=== PATIENT | female | born 1980 | race Caucasian/White ===

== ENCOUNTER 2016-04-23 18:13 | Emergency (ER) | payer OTHER ==
[~2016-04-23] VITALS: Ht 162.6 cm; Wt 60.0 kg
[~2016-04-23 18:13] MED LIST: IBUP400T20 PO; QUET1TAB66
[2016-04-23 18:55] VITALS: BP 110/70; PULSE 85; RESP 20; TEMP 97.3; O2SAT 100
[2016-04-23 19:55] LABS: AMPHETAMINE, URINE NEG (NEG); BARBITURATES, URINE NEG (NEG); COCAINE, URINE NEG (NEG)
[2016-04-23 20:07] LABS: BACTERIA, URINE OCC /hpf; BLOOD, URINE NEG (NEG); COMMENT (UR) CULT NOT INDICATED; CULTURE IF INDICATED CULT NOT INDICATED; GLUCOSE,URINE NEG (NEG); KETONE, URINE NEG (NEG); MUCUS URINE MOD /lpf (OCC); NITRITE,URINE NEG (NEG); PH, URINE 5.5 (5.0-8.5); SQUAMOUS EPITHELIAL CELL URINE 4 /hpf (0-5); URINE COLOR YELLOW (YELLW/STRAW)
--- NOTE | 2016-04-23 20:38 | PD ---
HPI Chief Complaint: Psychiatric Symptoms Time Seen by Provider: 20:36 Travel History International Travel<30 days: No Contact w/Intl Traveler<30days: No Traveled to known affect area: No History of Present Illness HPI Patient comes in under Reed act by police for making suicidal statements. Patient states she was having thoughts of harming herself. Patient states she has attempted suicide in the past by overdosing on Xanax and a plan today was take whatever pills she had in her purse. Patient denies actually taking anything. Denies any chest pain, shortness of breath, nausea, vomiting, or fevers. PFSH Past Medical History Bipolar Disorder: Yes ?: Not Social History Alcohol Use: No Tobacco Use: No Substance Use: No Allergies-Medications (Allergen,Severity, Reaction): Coded Allergies: No Known Allergies (Verified Allergy, Mild, 10/09/06) Reported Meds & Prescriptions Reported Meds & Active Scripts Active Motrin (Ibuprofen) 400 Mg Tab 400 Mg PO Q8HPRN FOR PAIN Reported Seroquel (Quetiapine Fumarate) 300 Mg Tab Review of Systems Except as stated in HPI: all other systems reviewed are Neg Physical Exam Narrative GENERAL: Well-developed, well nourished, in no acute distress, and non-ill appearing. SKIN: Warm and dry. HEAD: Atraumatic. Normocephalic. EYES: Pupils equal and round. EOMI. No scleral icterus. No injection or drainage. ENT: No nasal bleeding or discharge. Mucous membranes pink and moist. NECK: Trachea midline. Supple. No nuclear rigidity. CARDIOVASCULAR: Regular rate and rhythm. No murmur appreciated. RESPIRATORY: No accessory muscle use. No respiratory distress. Clear to auscultation. Breath sounds equal bilaterally. MUSCULOSKELETAL: No obvious deformities. No clubbing. No cyanosis. No edema. Full range of motion. NEUROLOGICAL: Awake and alert. No obvious cranial nerve deficits. Motor grossly within normal limits. Normal speech. PSYCHIATRIC: Mildly agitated. Data Data Last Documented VS Vital Signs Date Time Temp Pulse Resp B/P Pulse Ox O2 Delivery O2 Flow Rate FiO2 04/23/16 18:55 97.3 85 20 110/70 100 Orders Complete Blood Count With Diff (04/23/16 19:09) Comprehensive Metabolic Panel (04/23/16 19:09) Urinalysis - C+S If Indicated (04/23/16 19:09) Ed Urine Pregnancytest Poc (04/23/16 19:09) Psych Screen (04/23/16 19:09) Drug Screen, Random Urine (04/23/16 19:09) Alcohol (Ethanol) (04/23/16 19:09) Tylenol (Acetaminophen) (04/23/16 19:09) Salicylates (Aspirin) (04/23/16 19:09) Labs Laboratory Tests Test 04/23/16 04/23/16 19:33 19:50 Urine Color YELLOW Urine Turbidity CLEAR Urine pH 5.5 Urine Specific [place] 1.011 Urine Protein NEG mg/dL Urine Glucose (UA) NEG mg/dL Urine Ketones NEG mg/dL Urine Occult Blood NEG Urine Nitrite NEG Urine Bilirubin NEG Urine Urobilinogen LESS THAN 2.0 MG/DL Urine Leukocyte Esterase NEG Urine RBC 1 /hpf Urine WBC 1 /hpf Urine Squamous Epithelial 4 /hpf Cells Urine Bacteria OCC /hpf Urine Mucus MOD /lpf Microscopic Urinalysis Comment CULT NOT INDICATED Urine Opiates Screen NEG Urine Barbiturates Screen NEG Urine Amphetamines Screen NEG Urine Benzodiazepines Screen NEG Urine Cocaine Screen NEG Urine Cannabinoids Screen POS White Blood Count 8.3 TH/MM3 Red Blood Count 4.03 MIL/MM3 Hemoglobin 12.9 GM/DL Hematocrit 38.0 % Mean Corpuscular Volume 94.3 FL Mean Corpuscular Hemoglobin 31.9 PG Mean Corpuscular Hemoglobin 33.8 % Concent Red Cell Distribution Width 13.5 % Platelet Count 280 TH/MM3 Mean Platelet Volume 8.0 FL Neutrophils (%) (Auto) 51.0 % Lymphocytes (%) (Auto) 34.4 % Monocytes (%) (Auto) 7.8 % Eosinophils (%) (Auto) 5.8 % Basophils (%) (Auto) 1.0 % Neutrophils # (Auto) 4.2 TH/MM3 Lymphocytes # (Auto) 2.9 TH/MM3 Monocytes # (Auto) 0.7 TH/MM3 Eosinophils # (Auto) 0.5 TH/MM3 Basophils # (Auto) 0.1 TH/MM3 CBC Comment DIFF FINAL Differential Comment Sodium Level 140 MEQ/L Potassium Level 3.7 MEQ/L Chloride Level 107 MEQ/L Carbon Dioxide Level 28.4 MEQ/L Anion Gap 5 MEQ/L Blood Urea Nitrogen 9 MG/DL Creatinine 0.88 MG/DL Estimat Glomerular Filtration 72 ML/MIN Rate Random Glucose 77 MG/DL Calcium Level 8.9 MG/DL Total Bilirubin 0.3 MG/DL Aspartate Amino Transf 11 U/L (AST/SGOT) Alanine Aminotransferase 15 U/L (ALT/SGPT) Alkaline Phosphatase 48 U/L Total Protein 7.8 GM/DL Albumin 4.2 GM/DL Salicylates Level 2.5 MG/DL Acetaminophen Level LESS THAN 2.0 MCG/ML Ethyl Alcohol Level LESS THAN 3 MG/DL MDM Medical Decision Making Medical Screen Exam Complete: Yes Emergency Medical Condition: Yes Differential Diagnosis Homicidal, suicidal, bipolar, depression, anxiety, other Narrative Course Patient was seen and examined. Labs were obtained and reviewed. Patient medically cleared for further treatment and evaluation by psych. Final disposition per psych. Diagnosis Primary Impression: Suicidal ideations Condition: Stable Rasta Veloz Apr 23, 2016 20:38
[2016-04-23 20:39] LABS: ANION GAP 5 MEQ/L (5-15)
[2016-04-23 20:42] LABS: ACETAMINOPHEN LESS THAN 2.0 MCG/ML (10.0-30.0); ALKALINE PHOSPHATASE 48 U/L (45-117); ALT (GPT) 15 U/L (10-53); AST (GOT) 11 U/L (15-37); BICARBONATE 28.4 MEQ/L (21.0-32.0); BLOOD UREA NITROGEN 9 MG/DL (7-18); CHLORIDE 107 MEQ/L (98-107); GLOMERULAR FILTRATION RATE 72 ML/MIN (>89); POTASSIUM 3.7 MEQ/L (3.5-5.1); SODIUM (NA) 140 MEQ/L (136-145); TOTAL BILIRUBIN ADULT 0.3 MG/DL (0.2-1.0)
[2016-04-23 21:10] LABS: AUTOMATED NEUTROPHIL # 4.2 TH/MM3 (1.8-7.7); BASOPHIL # 0.1 TH/MM3 (0-0.2); EOSINOPHIL # 0.5 TH/MM3 (0-0.4); EOSINOPHIL % 5.8 % (0.0-4.0); HEMO FLAGS DIFF FINAL; LYMPH % 34.4 % (9.0-44.0); LYMPHOCYTE # 2.9 TH/MM3 (1.0-4.8); MEAN CELL VOLUME 94.3 FL (80.0-100.0); MEAN CORPUSCULAR HEMOGLOBIN 31.9 PG (27.0-34.0); MEAN CORPUSCULAR HGB CONC 33.8 % (32.0-36.0); MONO % 7.8 % (0.0-8.0); PLATELET COUNT 280 TH/MM3 (150-450); RED BLOOD COUNT 4.03 MIL/MM3 (4.00-5.30); RED CELL DISTRIBUTION WIDTH 13.5 % (11.6-17.2); WHITE BLOOD COUNT 8.3 TH/MM3 (4.0-11.0)
[2016-04-23] MEDS ORDERED: diphenhydrAMINE HCL 50 MG CAP PO ONE (21:15)
[2016-04-23 22:00] VITALS: BP 108/57; PULSE 94; RESP 18; O2SAT 99
[2016-04-23] MEDS ORDERED: clonazePAM 1 MG TAB PO ONE (22:15)
[2016-04-23] MEDS ORDERED: OLANZapine IM 10 MG VIAL IM ONE (23:45)
[2016-04-24 02:00] VITALS: BP 89/52; PULSE 81; RESP 16; O2SAT 98
[2016-04-24 06:15] VITALS: BP 104/60; PULSE 80; RESP 18; O2SAT 96
--- NOTE | 2016-04-24 10:15 | PD ---
History of Present Illness Chief Complaint: Psychiatric Symptoms Time Seen by Provider: 10:00 Travel History International Travel<30 Days: No Contact w/Intl Traveler<30days: No Known affected area: No Legal Status Legal Status: Reed Act Reed Act Signed By: Gabrielle Samuel Reed Act Comment: 2016 @ [id number] History of Present Illness: History of Present Illness HPI Patient is a 36 year old female with a reported history of bipolar disorder who comes in under Reed act by police for making suicidal statements. As per the report the police responded to a well being check initiated by the patient's employer. after she was terminated. The patient informed the police that she was thinking of jumping off a bridge. She also reported she took extra pills and that she had thoughts of taking the remainder of the pills. As per EMR review she has had 2 previous contacts with [facility] with issues relating to anxiety and alcohol intoxication. This was in 2004 and 2006. She deneis substance use but positive toxicology for cannabinoids. She clarifies that this is not a drug and that she has been using for more than 20 years and that it helps her remain calm. Patient is seen in J pod. Awake, alert and oriented. She is irritable with angry affect. She is annoyed by the process of having been BA and having to be here. Her speech is clear and she does answer questions. There is no indication of any thought process or content disturbance. No sharmila. Mood is described as dysphoric. She denies any suicidal or homicidal ideation, intent or plan. She denies any previous suicidal intent. Reports fair sleep, low appetite and appropriatte level of energy. " This is my normal". Reports that she is currently taking psychiatric medications prescribded by Dr. Kendall She is requesting discharge at this time. [facility] Past Medical History Bipolar Disorder: Yes ?: Not Psychiatric History Psychiatric History Hx Psychiatric Treatment: ANXIETY, BI- POLAR DISORDER Deneis any inpatietn treatmetn History of Inpatient Treatment: No Guns or firearms in home: No Social History Single female. Born in [place]. Has a toddler. Lives with her child. Recently fired from her job at [employer]. Hx Alcohol Use: No Hx Tobacco Use: No Hx Substance Use: Yes Substance Use Type: Marijuana, Benzos (Valium,Xanax) Hx of Substance Use Treatment: No Family Psychiatric History Sister with reported bipolar disorder Allergies-Medications (Allergen,Severity, Reaction): Coded Allergies: No Known Allergies (Verified Allergy, Mild, 10/09/06) Reported Meds & Prescriptions Reported Meds & Active Scripts Active Motrin (Ibuprofen) 400 Mg Tab 400 Mg PO Q8HPRN FOR PAIN Reported Seroquel (Quetiapine Fumarate) 300 Mg Tab Review of Systems Except as stated in HPI: all other systems reviewed are Neg Psychiatric: COMPLAINS OF: Anxiety, Depression Exam Alert: Yes [place]: Person (ox4) Mood: Angry Affect: Other (congruent to affect) Speech: Clear, Logical Eye Contact: Normal Memory Intact: Comment (no impairmetn) Hallucinations: Other (negative) Delusions: No Suicidal: Ideation (denies any) Homicidal: Ideation (denies any) Insight/Judgement Fair. Not impaired MDM Medical Decision Making Medical Record Reviewed: Yes Assessment/Plan 36 year old female under a BA after she alledgedly verbalized thoughts of wanting to jump off a bridge or take pills. This in context of having been fired from her job. Patient was monitored in controlled and secure environment. No suicidality. She is denying any suicidal or homicidal ideation, intent or plan at this time. States she was angry at the time she made the comments. She is future oriented and has asked for referrals for area mental health professionals that can provide counseling services. At this time she does not meet criteria for BA. She does not present imminent risk to self or others. Will lift BA and discharge. Orders Complete Blood Count With Diff (04/23/16 19:09) Comprehensive Metabolic Panel (04/23/16 19:09) Urinalysis - C+S If Indicated (04/23/16 19:09) Ed Urine Pregnancytest Poc (04/23/16 19:09) Psych Screen (04/23/16 19:09) Drug Screen, Random Urine (04/23/16 19:09) Alcohol (Ethanol) (04/23/16 19:09) Tylenol (Acetaminophen) (04/23/16 19:09) Salicylates (Aspirin) (04/23/16 19:09) Diphenhydramine (Benadryl) (04/23/16 21:15) Clonazepam (Klonopin) (04/23/16 22:15) Olanzapine Inj (Zyprexa Inj) (04/23/16 23:45) Diet Regular Basic (04/24/16 Breakfast) Diet Regular Basic (04/24/16 Lunch) Results Vital Signs Date Time Temp Pulse Resp B/P Pulse Ox O2 Delivery O2 Flow Rate FiO2 04/24/16 06:15 80 18 104/60 96 Room Air 04/24/16 02:00 81 16 89/52 98 Room Air 04/23/16 22:00 94 18 108/57 99 Room Air 04/23/16 18:55 97.3 85 20 110/70 100 Laboratory Tests Test 04/23/16 04/23/16 19:33 19:50 Urine Color YELLOW Urine Turbidity CLEAR Urine pH 5.5 Urine Specific [place] 1.011 Urine Protein NEG Urine Glucose (UA) NEG Urine Ketones NEG Urine Occult Blood NEG Urine Nitrite NEG Urine Bilirubin NEG Urine Urobilinogen LESS THAN 2.0 Urine Leukocyte Esterase NEG Urine RBC 1 Urine WBC 1 Urine Squamous Epithelial 4 Cells Urine Bacteria OCC Urine Mucus MOD Microscopic Urinalysis Comment CULT NOT INDICATED Urine Opiates Screen NEG Urine Barbiturates Screen NEG Urine Amphetamines Screen NEG Urine Benzodiazepines Screen NEG Urine Cocaine Screen NEG Urine Cannabinoids Screen POS White Blood Count 8.3 Red Blood Count 4.03 Hemoglobin 12.9 Hematocrit 38.0 Mean Corpuscular Volume 94.3 Mean Corpuscular Hemoglobin 31.9 Mean Corpuscular Hemoglobin 33.8 Concent Red Cell Distribution Width 13.5 Platelet Count 280 Mean Platelet Volume 8.0 Neutrophils (%) (Auto) 51.0 Lymphocytes (%) (Auto) 34.4 Monocytes (%) (Auto) 7.8 Eosinophils (%) (Auto) 5.8 Basophils (%) (Auto) 1.0 Neutrophils # (Auto) 4.2 Lymphocytes # (Auto) 2.9 Monocytes # (Auto) 0.7 Eosinophils # (Auto) 0.5 Basophils # (Auto) 0.1 CBC Comment DIFF FINAL Differential Comment Sodium Level 140 Potassium Level 3.7 Chloride Level 107 Carbon Dioxide Level 28.4 Anion Gap 5 Blood Urea Nitrogen 9 Creatinine 0.88 Estimat Glomerular Filtration 72 Rate Random Glucose 77 Calcium Level 8.9 Total Bilirubin 0.3 Aspartate Amino Transf 11 (AST/SGOT) Alanine Aminotransferase 15 (ALT/SGPT) Alkaline Phosphatase 48 Total Protein 7.8 Albumin 4.2 Salicylates Level 2.5 Acetaminophen Level LESS THAN 2.0 Ethyl Alcohol Level LESS THAN 3 Diagnosis Primary Impression: Bipolar disorder Ruled Out: Suicidal ideations Psychiatrically Cleared: Yes Departure Forms: Tests/Procedures Patient Instructions: General Instructions, Stress (ED) Additional Instructions: A LIST OF COMMUNITY RESOURCES PROVIDED SHOULD YOU DECIDE TO SEEK THERAPY OR MEDICATION MANAGEMENT. Med/ Other Pt Specific Info: No Change to Meds Disposition: 01 DISCHARGE HOME Condition: Stable Problem Qualifiers Primary Impression: Bipolar disorder Qualified Code: F31.31 - Bipolar affective disorder, currently depressed, mild Theresa Conley Apr 24, 2016 10:15
== END 2016-04-24 10:25 | disposition home or self-care (01) ==
LOC: NEDAMB 18:13 → NEPJ 04-24 10:25
DX: F31.9 Bipolar disorder, unspecified (principal); F41.9 Anxiety disorder, unspecified
CPT/HCPCS: 80053; 80307; 80320; 80329; 81001; 85025; 96372; G0480